=== PATIENT | male | born 1975 | race Caucasian/White ===

== ENCOUNTER 2019-11-02 15:36 | Emergency (ER) | payer BC ==
[2019-11-02] MEDS: Nitroglycerin 0.4 MG Tab.SL SL ONE ×2 (15:55→16:17)
[2019-11-02] MEDS ORDERED: Aspirin 81 MG Tab.Chew PO ONE (15:58)
[2019-11-02] MEDS ORDERED: Nitroglycerin 0.4 MG Tab.SL SL ONE (16:24)
[2019-11-02] MEDS ORDERED: GI Cocktail Oral Solution 30 ML PO ONE (16:24)
--- NOTE | 2019-11-02 16:27 | EDM.PDOC ---
ED HPI GENERAL MEDICAL PROBLEM - General Stated Complaint: CP HTN Time Seen by Provider: 11/02/19 15:45 Source of Information: Reports: Patient History Limitations: Reports: No Limitations - History of Present Illness INITIAL COMMENTS - FREE TEXT/NARRATIVE: Patient comes emergency department today from home with complaints of high blood pressure and chest pain. This patient has had a longstanding history of high blood pressure that he does not take any medication for. He does not see a doctor on a regular basis. He checked his blood pressure at home today after he woke up and noticed that it was quite elevated. When he woke up this morning he felt like pit was in his stomach almost like heartburn. This pain got worse throughout the day and moved up into the left anterior chest. It is like a pressure pain that comes and goes. It is not worse with deep breath cough or movement. He is not short of breath he has no nausea or vomiting. No diaphoresis. No weakness dizziness lightheadedness. No palpitations. No COVID exposure COVID concerns COVID symptoms. He has no known history of hypercholesteremia no early cardiac or disease in his family. He is a chewing tobacco user for 12 years. He does drink alcohol occasionally. He does struggle with heartburn on a regular basis. He does drink alcohol on a regular basis. Mid-Sternal Chest Pain Score (Numeric/FACES): 2 - Related Data Allergies Allergy/AdvReac Type Severity Reaction Status Date / Time No Known Allergies Allergy Verified 11/02/19 16:40 Home Meds: Home Meds Lisinopril/Hydrochlorothiazide [Lisinopril-Hctz 10-12.5 mg Tab] 1 each PO DAILY #30 tablet 11/02/19 [Rx] ED ROS GENERAL - Review of Systems Review Of Systems: Comprehensive ROS is negative, except as noted in HPI. ED EXAM, GENERAL - Physical Exam Exam: See Below Exam Limited By: No Limitations General Appearance: Alert, WD/WN, No Apparent Distress Eye Exam: Bilateral Eye: EOMI, PERRL Ears: Normal External Exam Nose: Normal Inspection Throat/Mouth: Normal Inspection Head: Atraumatic Neck: Normal Inspection, Supple Respiratory/Chest: No Respiratory Distress, Lungs Clear, Normal Breath Sounds, No Accessory Muscle Use Cardiovascular: Normal Peripheral Pulses, Regular Rate, Rhythm GI/Abdominal: Normal Bowel Sounds, Soft, No Organomegaly, No Distention, Tender (Very mild tenderness in the epigastric region no guarding or rebound. ) (Male) Exam: Deferred Rectal (Males) Exam: Deferred Back Exam: Normal Inspection, Full Range of Motion Extremities: Normal Inspection, Normal Range of Motion, No Pedal Edema, Normal Capillary Refill Neurological: Alert, Oriented, Normal Cognition, Normal Gait, No Motor/Sensory Deficits Psychiatric: Normal Affect, Normal Mood Skin Exam: Warm, Dry, Intact, Normal Color, No Rash EKG INTERPRETATION EKG Date: 11/02/19 Time: 15:34 Rhythm: NSR Rate (Beats/Min): 85 [place]: Normal P-Wave: Present QRS: Normal ST-T: Normal QT: Normal Comparison: NA - No Prior EKG Course - Vital Signs Last Recorded V/S: Last Vital Signs Temp 98.6 F 11/02/19 15:40 Pulse 77 11/02/19 16:57 Resp 16 11/02/19 16:57 BP 129/94 H 11/02/19 16:57 Pulse Ox 96 11/02/19 16:57 - Orders/Labs/Meds Orders: Active Orders 24 hr Category Date Time Status EKG Documentation Completion [RC] STAT Care 11/02/19 15:58 Active Labs: Laboratory Tests 11/02/19 11/02/19 11/02/19 Range/Units 15:52 15:52 17:05 WBC 5.8 (4.0-10.0) x10^3/uL RBC 5.18 (4.5-6.0) x10^6/uL Hgb 15.7 (14.0-18.0) g/dL Hct 42.7 (40.0-52.0) % MCV 82.4 (78.0-93.0) fL MCH 30.3 (26.0-32.0) pg MCHC 36.8 H (32.0-36.0) g/dL RDW Coeff of Mel 12.2 (10.0-15.0) % Plt Count 201 (130-400) x10^3/uL Neut % (Auto) 61.1 (50.0-80.0) % Lymph % (Auto) 28.1 (25.0-50.0) % [place] % (Auto) 8.2 (2.0-11.0) % Eos % (Auto) 2.1 (0.0-4.0) % Baso % (Auto) 0.5 (0.2-1.2) % Sodium 137 (136-145) mmol/L Potassium 4.0 (3.5-5.1) mmol/L Chloride 100 (98-107) mmol/L Carbon Dioxide 28 (21-32) mmol/L Anion Gap 13.0 (10-20) mmol/L BUN 15 (7-18) mg/dL Creatinine 1.1 (0.70-1.30) mg/dL Est Cr Clr Drug Dosing TNP Estimated GFR (MDRD) > 60 Glucose 99 (74-106) mg/dL Calcium 9.3 (8.5-10.1) mg/dL Corrected Calcium 8.98 (8.5-10.1) mg/dL Total Bilirubin 0.9 (0.2-1.0) mg/dL AST 28 (15-37) U/L ALT 67 H (16-63) U/L Alkaline Phosphatase 63 (46-116) U/L Troponin I < 0.017 (<=0.056) ng/mL C-Reactive Protein < 0.2 (<=0.9) mg/dL NT-Pro-B Natriuret Pep 32 (<=125) pg/mL Total Protein 7.9 (6.4-8.2) g/dL Albumin 4.4 (3.4-5.0) g/dL Globulin 3.5 Albumin/Globulin Ratio 1.26 Urine Color Yellow (YELLOW) Urine Appearance Clear (CLEAR) Urine pH 7.0 (5.0-8.0) Ur Specific [place] 1.025 Urine Protein Negative (NEGATIVE) mg/dL Urine Glucose (UA) Negative (NEGATIVE) mg/dL Urine Ketones Negative (NEGATIVE) mg/dL Urine Occult Blood Negative (NEGATIVE) Urine Nitrite Negative (NEGATIVE) Urine Bilirubin Negative (NEGATIVE) Urine Urobilinogen 0.2 (0.2) EU/dL Ur Leukocyte Esterase Negative (NEGATIVE) Meds: Medications Discontinued Medications Generic Name Dose Route Start Last Admin Trade Name Freq PRN Reason Stop Dose Admin Al Hydroxide/Mg Hydroxide 30 ml 11/02/19 16:24 11/02/19 16:49 Gi Cocktail PO 11/02/19 16:25 30 ml ONETIME ONE Administration Aspirin 324 mg 11/02/19 15:58 11/02/19 16:17 Aspirin PO 11/02/19 15:59 324 mg ONETIME ONE Administration Hydrochlorothiazide 12.5 mg 11/02/19 17:03 Hydrochlorothiazide PO 11/02/19 17:04 NOW STA Lisinopril 10 mg 11/02/19 17:03 Prinivil PO 11/02/19 17:04 ONETIME ONE Nitroglycerin 0.4 mg 11/02/19 15:58 11/02/19 16:17 Nitrostat SL 11/02/19 15:59 0.4 mg ONETIME ONE Administration Nitroglycerin 0.4 mg 11/02/19 16:24 11/02/19 16:45 Nitrostat SL 11/02/19 16:25 Not Given ONETIME ONE - Re-Assessments/Exams Free Text/Narrative Re-Assessment/Exam: 11/02/19 16:32 The patient was given ASA and Nitro by the nurse prior to my assessment. He relates the pressure on his chest is down from 2/10 down to 1/10. Initial blood pressure was 201/125 which is about what the patient was getting at home for blood pressures and what it normally runs he states. 11/02/19 17:13 EKG negative. Troponin negative. He is chest pain free with a normal EKG and troponin. I did briefly discuss this patient with Dr. Randall Knight who is site identification specialist for the hospital and his guidance was for dual therapy initiation of blood pressure medications and close follow up in the clinic. I explained hypertensive urgency and there is no evidence of end organ damage. His CP has been going on all day with a normal EKG and troponin. He was given Lisinopril 10mg and HCTZ 12.5 mg in the ED and we will start him on that at home as well. Discussed the medications side effects and MOA with the patient and the importance for him to have a close follow up in the clinic. If at anytime the CP returns he is to come to the ED or call 911. He is comfortable with this plan and his questions answered. 11/02/19 17:21 Following the nitro and aspirin his blood pressure was much improved to 120s/90s and CP free feels much better and no signs of symptomatic problems with BP reduction. Departure - Departure Time of Disposition: 17:18 Disposition: Home, Self-Care 01 Clinical Impression: Hypertensive urgency, Atypical chest pain Instructions: Nonspecific Chest Pain, Adult, Luow-ln-Olrh, Hypertension, Adult, Tmai-up-Czel Additional Instructions: Low Sodium diet. Consider quitting tobacco usage. Start taking Lisinopril/Hydrochlorothiazide 10mg/12.5mg tablet daily start on wednesday. [facility]. Make an appointment with Dr. Randall Knight at the [facility] or whomever for wednesday for recheck. Return to the ED or call 911 if you develop Chest pain or pressure again. Return to the ED if new or worsening symptoms. Sepsis Event Note (ED) - Focused Exam Vital Signs: Vital Signs Temp Pulse Resp BP BP Pulse Ox 11/02/19 16:57 77 16 129/94 H 96 11/02/19 16:30 68 16 145/100 H 99 11/02/19 16:17 180/119 H 11/02/19 16:00 68 186/117 H 11/02/19 15:55 181/117 H 11/02/19 15:40 98.6 F 84 16 201/125 H 98 - My Orders Last 24 Hours: My Active Orders 11/02/19 15:58 EKG Documentation Completion [RC] STAT - Assessment/Plan Last 24 Hours: My Active Orders 11/02/19 15:58 EKG Documentation Completion [RC] STAT Assessment:: hypertensive urgency atypical chest pain. Plan: Low Sodium diet. Consider quitting tobacco usage. Start taking Lisinopril/Hydrochlorothiazide 10mg/12.5mg tablet daily start on wednesday. Rx sent to [facility]. Make an appointment with Dr. Randall Knight at the [facility] or whomever for wednesday for recheck. Return to the ED or call 911 if you develop Chest pain or pressure again. Return to the ED if new or worsening symptoms.
[2019-11-02 16:35] LABS: CHLORIDE,CL 100 mmol/L (98-107); SODIUM,NA 137 mmol/L (136-145)
[2019-11-02] MEDS ORDERED: Lisinopril 10 MG Tab PO ONE (17:03)
[2019-11-02] MEDS ORDERED: Hydrochlorothiazide 12.5 MG Cap PO STA (17:03)
--- NOTE | 2019-11-02 17:11 | CR ---
[id number] RAD/RAD Chest PA And Lateral EXAM: RAD Chest PA And Lateral CLINICAL DATA: CHEST PAIN COMPARISON: NO PREVIOUS SIMILAR EXAM IS AVAILABLE. FINDINGS: The lungs are clear. The cardiomediastinal contour is normal. The regional bones and soft tissues are unremarkable. IMPRESSION: NO ACUTE PROCESS. Terrell Villareal MD 11/02/19 [id number] Thank you for allowing us to participate in the care of your patient.
== END 2019-11-02 17:25 | disposition home or self-care (01) ==
LOC: VM.ED 15:36
DX: I16.0 Hypertensive urgency (principal); F17.220 Nicotine dependence, chewing tobacco, uncomplicated; Z79.899 Other long term (current) drug therapy
CPT/HCPCS: 71046; 80053; 81003; 83880; 84484; 85025; 86140; 93005; 99285; A9270